=== PATIENT | female | born 1970 | race Caucasian/White ===

== ENCOUNTER → 2016-12-27 | Outpatient (CLI) | payer MEDICARE | LOC: PLAB 11:37 | PROVIDERS: ATTEND Obstetrics & Gynecology | DX: N95.1 Menopausal and female climacteric states (principal) ==

== ENCOUNTER → 2017-01-12 | Outpatient (CLI) | payer MEDICARE ==
[2017-01-12 15:59] LABS: HEMATOCRIT 34.7 % (35.0-46.0); MEAN CELL VOLUME 78.7 FL (80.0-100.0); MEAN CORPUSCULAR HEMOGLOBIN 24.5 PG (27.0-34.0); MEAN CORPUSCULAR HGB CONC 31.2 % (32.0-36.0); PLATELET COUNT 384 TH/MM3 (150-450); RED BLOOD COUNT 4.42 MIL/MM3 (4.00-5.30); RED CELL DISTRIBUTION WIDTH 15.5 % (11.6-17.2); REVIEW FLAG FINAL; WHITE BLOOD COUNT 10.4 TH/MM3 (4.0-11.0)
[2017-01-12 16:27] LABS: FOLLICLE STIMULATING HORMONE 2.5 mIU/mL; FREE T4 0.8 NG/DL (0.76-1.46)
== END ==
LOC: PLAB 12:15
PROVIDERS: ATTEND Obstetrics & Gynecology
DX: R10.2 Pelvic and perineal pain (principal); N92.1 Excessive and frequent menstruation with irregular cycle; N94.4 Primary dysmenorrhea
CPT/HCPCS: 36415; 83001; 84439; 84443; 84480; 85027

== ENCOUNTER → 2017-01-20 | Outpatient (CLI) | payer MEDICARE ==
[2017-01-20 13:12] LABS: AUTOMATED NEUTROPHIL # 2.3 TH/MM3 (1.8-7.7); BASOPHIL # 0.1 TH/MM3 (0-0.2); BASOPHIL % 2.4 % (0.0-2.0); EOSINOPHIL # 0.3 TH/MM3 (0-0.4); EOSINOPHIL % 5.1 % (0.0-4.0); HEMATOCRIT 32.9 % (35.0-46.0); HEMO FLAGS DIFF FINAL; LYMPH % 37.6 % (9.0-44.0); MEAN CELL VOLUME 78.7 FL (80.0-100.0); MEAN CORPUSCULAR HEMOGLOBIN 24.5 PG (27.0-34.0); MEAN CORPUSCULAR HGB CONC 31.1 % (32.0-36.0); MONO % 11.9 % (0.0-8.0); PLATELET COUNT 422 TH/MM3 (150-450); RED BLOOD COUNT 4.18 MIL/MM3 (4.00-5.30); RED CELL DISTRIBUTION WIDTH 15.3 % (11.6-17.2); WHITE BLOOD COUNT 5.4 TH/MM3 (4.0-11.0)
[2017-01-20 13:26] LABS: BLOOD, URINE NEG (NEG); COMMENT (UR) CULT NOT INDICATED; CULTURE IF INDICATED CULT NOT INDICATED; GLUCOSE,URINE NEG (NEG); KETONE, URINE NEG (NEG); NITRITE,URINE NEG (NEG); PH, URINE 7.5 (5.0-8.5); URINE COLOR YELLOW (YELLW/STRAW)
[2017-01-20 14:46] LABS: BETA HCG QUANT LESS THAN 1 MIU/ML (0-5)
--- NOTE | 2017-01-22 11:14 | EKG ---
Date Performed: 01/20/2017 Time Performed: 13:07:43 PTAGE: 46 years EKG: Sinus rhythm LOW QRS VOLTAGE IN PRECORDIAL LEADS BORDERLINE ECG NO PREVIOUS TRACING DOCTOR: Monty Maloney Interpretating Date/Time 01/22/2017 11:06:26
--- NOTE | 2017-01-25 17:28 | MH ---
cc: GAMA PAUL MD DATE OF ADMISSION: 01/20/2017 ADMITTING DIAGNOSIS: Pelvic pain with menorrhagia, dysmenorrhea and anemia secondary to ovarian cyst and possible fibroids. HISTORY OF PRESENT ILLNESS The patient is a 46-year-old single white female para 2-0-0-2 reports menstrual flow menstrual pain issues for several years. Her ultrasound from 12/27/2016 showed bilateral ovarian cysts and 2.7 cm solid mass around, left ovary and fluid. She is now admitted for surgical evaluation. PAST MEDICAL HISTORY Previous surgery She had 1997, 1995. She had breast augmentation 1999 Right breast biopsy in 2012 MEDICATIONS Vitamins. ALLERGIES None TRANSFUSIONS None. SOCIAL HISTORY She is single, massage therapist. Alcohol occasional, tobacco none. Drugs none. FAMILY HISTORY: Noncontributory. PHYSICAL EXAMINATION: IN GENERAL: This is a well-nourished, well-developed, white female. VITAL SIGNS: The vital signs are stable. HEAD, EYES, EARS, NOSE, AND THROAT: Exam is normal. CHEST: Chest is clear regular rate. BREASTS: Breasts are symmetrical. ABDOMEN: The abdomen is benign. PELVIC: The pelvic exam normal external genitalia and Bartholin's, urethral, and Brush's. Vagina is normal, cervix normal, uterus normal size shape. ASSESSMENT/PLAN: Assessment as above. She is now admitted for a D&C, frozen section, laparoscopy with [facility] BSO or MINNIE-BSO. I explained the surgery, type of incisions, and recovery times with this type incision. I discussed ERT, with BSO and she would like to proceed. MD GIANNA Avalos/libby /5:05 PM /5:15 PM
== END ==
LOC: CPRE 12:46
PROVIDERS: ATTEND Obstetrics & Gynecology
DX: Z01.810 Encounter for preprocedural cardiovascular examination (principal); Z01.812 Encounter for preprocedural laboratory examination; N92.0 Excessive and frequent menstruation with regular cycle; R10.2 Pelvic and perineal pain; D39.10 Neoplasm of uncertain behavior of unspecified ovary; R94.31 Abnormal electrocardiogram [ECG] [EKG]
CPT/HCPCS: 36415; 81001; 84702; 85025; 93005

== ENCOUNTER 2017-01-26 10:49 | Observation (INO) | payer MEDICARE ==
[~2017-01-26] VITALS: Ht 160 cm; Wt 60.0 kg
[2017-01-26] MEDS ORDERED: ACETAMINOPHEN 1000 MG/100 ML VIAL IV ONE (11:29)
[2017-01-26] MEDS ORDERED: ceFAZolin 2 GM PREMIX 50 ML ONE (11:29)
[2017-01-26 11:31] VITALS: BP 121/79; PULSE 72; RESP 18; TEMP 98.1; O2SAT 98
[2017-01-26] MEDS ORDERED: NORMOSOL R INJ 1,000 ML IV ONE (12:00)
[2017-01-26] MEDS ORDERED: PROPOFOL 200 MG/20 ML AMP IV ONE (12:00)
[2017-01-26] MEDS ORDERED: ONDANSETRON HCL 4 MG/2 ML VIAL IV PUSH ONE (12:00)
[2017-01-26] MEDS ORDERED: KETOROLAC TROMETHAMINE 60 MG/2 ML (IM) VIAL IM ONE (12:00)
[2017-01-26] MEDS ORDERED: NEOSTIGMINE 3 MG/3 ML SYR IV ONE (12:00)
[2017-01-26] MEDS ORDERED: fentaNYL CITRATE 250 MCG/5 ML AMP ONE (12:31)
[2017-01-26] MEDS ORDERED: MIDAZOLAM HCL 2 MG/2 ML VIAL ONE (12:31)
[2017-01-26] MEDS ORDERED: FAMOTIDINE 20 MG/2 ML VIAL ONE (12:35)
[2017-01-26] MEDS ORDERED: CHLORHEXIDINE GLUCONATE 2 % 1 PACK (2 CLOTHS) TOPICAL PRN (14:45)
[2017-01-26] MEDS ORDERED: ONDANSETRON HCL 4 MG/2 ML VIAL IV PRN (14:45)
[2017-01-26] MEDS ORDERED: SODIUM CHLORIDE 0.9% FLUSH 5 ML FLUSH FLUSH PRN (14:45)
[2017-01-26] MEDS ORDERED: PROMETHAZINE HCL 25 MG TAB PO PRN (14:45)
[2017-01-26] MEDS ORDERED: INSULIN HUMAN REGULAR 1,000 UNITS/10 ML VIAL SQ PRN (14:45)
[2017-01-26] MEDS ORDERED: diphenhydrAMINE HCL 25 MG CAP PO PRN (14:45)
[2017-01-26] MEDS ORDERED: ACETAMINOPHEN 1000 MG/100 ML VIAL IV SCH (14:45)
[2017-01-26] MEDS ORDERED: SODIUM CHLORID 0.9% 500 ML IV PRN (14:45)
[2017-01-26] MEDS ORDERED: POVIDONE IODINE 5% (ANTISEPSIS KIT) 4 APPLICATIONS EACH NARE PRN (14:45)
[2017-01-26] MEDS ORDERED: ceFAZolin 2 GM PREMIX 50 ML IV SCH (14:45)
[2017-01-26] MEDS ORDERED: PROMETHAZINE INJ 25 MG/ML VIAL IM PRN (14:45)
[2017-01-26] MEDS ORDERED: HYDROmorphone HCL PF 1 MG/ML VIAL IV PRN (14:45)
[2017-01-26] MEDS ORDERED: ONDANSETRON ODT 4 MG TAB PO PRN (14:45)
[2017-01-26] MEDS ORDERED: LACTATED RINGER'S 1000 ML IV PRN (14:45)
[2017-01-26] MEDS ORDERED: METOPROLOL TARTRATE 25 MG TAB PO PRN (14:45)
[2017-01-26] MEDS ORDERED: *ONDANSETRON 4 MG VIAL PERIprocedural Use ONLY ONE (15:04)
[2017-01-26] MEDS: D5-1/2 NS + KCL 20 MEQ INJ 1,000 ML IV SCH ×2 (15:15→23:55)
[2017-01-26] MEDS ORDERED: *morphine SULFATE 8 MG/ML PERIprocedure ONLY ONE (15:23)
[2017-01-26] MEDS ORDERED: GLYCOPYRROLATE 0.2 MG/ML VIAL ONE (15:45)
[2017-01-26] MEDS ORDERED: GLYCOPYRROLATE 0.2 MG/ML VIAL IV ONE (15:46)
[2017-01-26] MEDS ORDERED: ONDANSETRON INJ 8 MG in DEXTROSE 5% IN WATER INJ 50 ML IV PRN ×2 (16:00)
[2017-01-26 16:40] VITALS: BP 120/81; PULSE 57; RESP 16; TEMP 97.6
[2017-01-26] MEDS: DOCUSATE SODIUM 100 MG CAP PO SCH (17:13)
[2017-01-26 19:05] LABS: HEMATOCRIT 31.7 % (35.0-46.0); REVIEW FLAG FINAL
[2017-01-26] MEDS: ACETAMINOPHEN 1000 MG/100 ML VIAL IV SCH (19:57)
[2017-01-26 20:00] VITALS: BP 96/66; PULSE 62; RESP 14; TEMP 98; O2SAT 97
[2017-01-26] MEDS: KETOROLAC TROMETHAMINE 30 MG/ML (IVP) VIAL IVP SCH (20:56)
[2017-01-26] MEDS ORDERED: ZOLPIDEM TARTRATE 5 MG TAB PO PRN (21:00)
[2017-01-26] MEDS ORDERED: SODIUM CHLORIDE 0.9% FLUSH 5 ML FLUSH FLUSH SCH (21:00)
[2017-01-26] MEDS ORDERED: METOCLOPRAMIDE HCL 10 MG/2 ML VIAL IV PUSH PRN (22:00)
[2017-01-27] VITALS: BP 87/61; PULSE 55; RESP 14; TEMP 98; O2SAT 97
[2017-01-27] MEDS: KETOROLAC TROMETHAMINE 30 MG/ML (IVP) VIAL IVP SCH ×2 (02:52→09:12)
[2017-01-27] MEDS: DOCUSATE SODIUM 100 MG CAP PO SCH (03:57)
[2017-01-27] MEDS: ACETAMINOPHEN 1000 MG/100 ML VIAL IV SCH (03:58)
[2017-01-27 04:00] VITALS: BP 101/55; PULSE 59; RESP 16; TEMP 97.8; O2SAT 98
[2017-01-27 05:59] LABS: AUTOMATED NEUTROPHIL # 7.7 TH/MM3 (1.8-7.7); BASOPHIL % 0.4 % (0.0-2.0); HEMATOCRIT 29.1 % (35.0-46.0); HEMO FLAGS DIFF FINAL; LYMPH % 11.3 % (9.0-44.0); LYMPHOCYTE # 1.1 TH/MM3 (1.0-4.8); MEAN CELL VOLUME 78.2 FL (80.0-100.0); MEAN CORPUSCULAR HEMOGLOBIN 25.6 PG (27.0-34.0); MEAN CORPUSCULAR HGB CONC 32.8 % (32.0-36.0); MONO % 8.7 % (0.0-8.0); NEUT % 79.6 % (16.0-70.0); PLATELET COUNT 362 TH/MM3 (150-450); RED BLOOD COUNT 3.72 MIL/MM3 (4.00-5.30); RED CELL DISTRIBUTION WIDTH 15.1 % (11.6-17.2); WHITE BLOOD COUNT 9.7 TH/MM3 (4.0-11.0)
[2017-01-27 06:25] LABS: POTASSIUM 4.3 MEQ/L (3.5-5.1)
--- NOTE | 2017-01-27 07:51 | HHI.DCPOC ---
Discharge Care Plan Report Symptoms to Your Doctor -Temperature above 100.5 degrees -Redness, of incision or excessive or foul smelling drainage -Unusual pain or calf pain -Increased vaginal bleeding -Painful or difficulty urinating -Feelings of extreme sadness or anxiety after 2 weeks Goals to Promote Your Health * To prevent worsening of your condition and complications * To maintain your health at the optimal level Directions to Meet Your Goals Take your medications as prescribed Follow your dietary instruction Follow activity as directed Ensure plenty of rest for recovery Drink fluids for hydration Keep your appointments as scheduled Take your immunizations and boosters as scheduled If your symptoms worsen call your PCP, if no PCP go to Urgent Care Center or Emergency Room Smoking is Dangerous to Your Health. Avoid second hand smoke Call the 24-hour crisis hotline for domestic abuse at Amauri Fraser MD Jan 27, 2017 07:51
[2017-01-27 07:52] VITALS: BP 94/58; PULSE 55; RESP 16; TEMP 97.8
--- NOTE | 2017-01-27 08:10 | MP ---
cc: GAMA PAUL M.D. DATE OF SURGERY 01/26/2017. PREOPERATIVE DIAGNOSIS Menorrhagia, dysmenorrhea. POSTOPERATIVE DIAGNOSIS Menorrhagia, dysmenorrhea. PROCEDURE D&C, frozen section followed by a laparoscopy with lysis of adhesions, LASH, BSO. ANESTHESIA General ET. SURGEON Gama Paul MD DIAL MARKER RIVERA Mendoza ESTIMATED BLOOD LOSS About 100 cc. FLUIDS 1 liter crystalloid. OBJECTIVE FINDINGS Following the induction of adequate general endotracheal anesthesia, the patient was prepped and draped supine on the operating table in the dorsal lithotomy position in sterile fashion with the bladder being drained via Parrish catheterization. Examination under anesthesia revealed an anterior uterus. A heavy weighted speculum was placed in the posterior fornix of the vagina, the anterior lip of the cervix grasped with a single-tooth tenaculum. The cervix and uterus sounded to 9 cm. The cervix was then dilated to a #16 Hanks dilator. Endocervical curettings were obtained for permanent study, endometrium with a sharp curette for frozen section. The vaginal instruments were removed, gloves and gown changed. The abdomen was opened through a 3-cm curving infraumbilical incision using a knife to cut down from the skin to the fascia. The fascia was opened transversely, stripped from the muscles, the rectus muscle was split in the midline and the peritoneum opened sharply without incident. Palpation was normal. A mini-GelPort was placed, the laparoscope inserted, a 5-port placed in the left lower quadrant and an Airsealport in the right lower quadrant. The uterus was about 12 weeks' size, anteriorly, densely adherent to the anterior abdominal wall just up to the fundus. The left ovary was cystic, about 3 cm; the right was more normal in size. Harmonic scalpel was used to lyse the adhesions between the anterior fundus and the anterior peritoneum. When complete, the harmonic scalpel was used to take the left utero-ovarian pedicle, left round ligament, left residual broad ligament and left uterine vessels. Same was done on the right. The harmonic scalpel was now used to amputate the fundus from the cervix and extracted in the pouch through the GelPort. The harmonic scalpel was now used to take the right ovary, left ovary and both were extracted through the GelPort site. Irrigation was performed. No bleeding was evident. The ureters were inspected for peristalsis. The bladder was filled with 250 cc of saline to check for leaks; there were none. The operative site was now coated with Evicel. The GelPort was removed and sutured with running 2-0 Vicryl for the peritoneum, 0 Vicryl running locking for the fascia from each corner to the midline and tied, the subcu with continuous 3-0 Vicryl and the skin was closed with buried subcuticular 3-0 Monocryl. The scope was now reinserted through the lower ports and used to inspect the GelPort site which was well closed with no adhesions, no entrapment of bowel. The pelvis was checked; there was no bleeding. The scope was removed. The gas was allowed to escape and the small port was closed with 3-0 Monocryl subcuticular, Dermabond applied. All counts were correct and the patient was awakened and taken to the recovery room in good condition. MD GIANNA Avalos/REYNOLD /2:48 PM /7:48 AM BRADY
== END 2017-01-27 10:14 | disposition home or self-care (01) ==
LOC: HSDC 10:49 → H1EA 14:40
PROVIDERS: ADMIT Obstetrics & Gynecology; ATTEND Obstetrics & Gynecology
PROC: 0UT24ZZ Resection of Bilateral Ovaries, Percutaneous Endoscopic Approach (ICD-10-PCS; 2017-01-26)
PROC: 0UT74ZZ Resection of Bilateral Fallopian Tubes, Percutaneous Endoscopic Approach (ICD-10-PCS; 2017-01-26)
PROC: 0UT94ZZ Resection of Uterus, Percutaneous Endoscopic Approach (ICD-10-PCS; principal; 2017-01-26 12:42)
DX: N80.0 Endometriosis of uterus (principal); N73.6 Female pelvic peritoneal adhesions (postinfective); N92.0 Excessive and frequent menstruation with regular cycle; N94.6 Dysmenorrhea, unspecified
CPT/HCPCS: 00840; 58542; 80048; 85014; 85018; 85025; 88305; 88307; 88331; G0378; J0131; J0690; J1885; J2250; J2270; J2405; J2550; J2710; J3010; J3480